=== PATIENT | male | born 1985 | race African-American/Black ===

== ENCOUNTER 2017-07-26 00:19 | Emergency (ER) | payer OTHER ==
[~2017-07-26] VITALS: Ht 167.6 cm; Wt 80.0 kg
[2017-07-26 00:59] VITALS: Ht 167.6 cm; Wt 80.0 kg
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
== END 2017-07-26 01:19 ==
LOC: E/R 00:19
DX: F10.920 Alcohol use, unspecified with intoxication, uncomplicated (principal); F17.210 Nicotine dependence, cigarettes, uncomplicated
CPT/HCPCS: 99283